=== PATIENT | female | born 1965 | race Caucasian/White ===

== ENCOUNTER 2018-11-17 15:50 | Emergency (ER) | payer BC ==
[~2018-11-17] VITALS: Ht 160 cm; Wt 59.9 kg
[2018-11-17 16:05] VITALS: Ht 160 cm; Wt 59.9 kg
[2018-11-17] MEDS ORDERED: ONDANSETRON 4 MG INJ IV STA (18:50)
[2018-11-17] MEDS ORDERED: LIDOCAINE/MYLANTA 40 ML BTL PO STA (18:50)
[2018-11-17] MEDS ORDERED: KETOROLAC 15 MG INJ IV STA (18:50)
[2018-11-17] MEDS ORDERED: SOD CHLORIDE 0.9% 1,000 ML IV STA (18:50)
[2018-11-17] MEDS ORDERED: LOPERAMIDE 2 MG CAP PO ONE (19:00)
[2018-11-17] MEDS ORDERED: ONDA4TAB8 PO (19:55)
[2018-11-17] MEDS ORDERED: LOPE2CAP PO (19:55)
[2018-11-17] MEDS ORDERED: IBUP-1542 PO (19:55)
--- NOTE | 2018-11-17 20:02 | ERD ---
ER Documentation Chief Complaint Chief Complaint AP since yesterday w/ c/o n/v/diarrhea HPI 53-year-old woman complaining of epigastric abdominal pain nausea and multiple episodes of diarrhea for the last 2 days. Her epigastric abdominal pain is been nonradiating and nonexertional. Home who recently diagnosed with viral syndrome. Patient has had no cough or chest pain, no shortness of breath, no sore throat, no body aches, no fevers or chills, and denies dysuria. Patient has had no recent travel or antibiotic use ROS All systems reviewed and are negative except as per history of present illness. Medications Home Meds Active Scripts Ibuprofen* (Motrin*) 600 Mg Tab, 600 MG PO Q8 PRN for PAIN AND/OR INFLAMMATION, #30 TAB Prov:ANGELINA BLANCO MD 11/17/18 Ondansetron Hcl* (Zofran*) 4 Mg Tablet, 4 MG PO Q8H PRN for NAUSEA AND/OR VOMITING, #30 TAB Prov:ANGELINA BLANCO MD 11/17/18 Loperamide Hcl* (Imodium*) 2 Mg Capsule, 2 MG PO .AFTER EA LOOSE BM PRN for DIARRHEA, #10 TAB Prov:ANGELINA BLANCO MD 11/17/18 PMhx/Soc Medical and Surgical Hx: pt denies Medical Hx, pt denies Surgical Hx Hx Alcohol Use: No Hx Substance Use: No Hx Tobacco Use: No Smoking Status: Never smoker FmHx Family History: No diabetes Physical Exam Vitals Vital Signs Date Temp Pulse Resp B/P (MAP) Pulse Ox O2 O2 Flow FiO2 Time Delivery Rate 11/17/18 98.6 77 20 130/60 97 16:05 (83) Physical Exam GENERAL: Well-developed, well-nourished, well-hydrated, in no apparent distress, looks nontoxic in appearance HEENT: Moist mucous membranes, pink conjunctiva, no cervical spine tenderness or step-off deformities, no goiter, no jaundice or icterus, extraocular movements intact without pain. No submandibular induration, and no pharyngeal erythema NEURO: Alert and oriented 3, cranial nerves II through XII intact bilaterally, pupils equal round reactive to light, no focal deficits or facial asymmetry, sensation intact distally Strength 5/5 in upper and lower extremities bilaterally CARDIAC: Regular rate and rhythm, no murmurs rubs or gallops LUNGS: Clear bilaterally no wheezing crackles or stridor ABDOMEN: Soft nontender, no guarding, no rigidity, no rebound, no psoas sign no obturator sign. Normoactive bowel sounds SKIN: Warm and dry to touch, no abrasions, contusions, or hematomas, no lacerations, no ecchymosis, no target lesions, and without ulcers EXTREMITIES: No clubbing cyanosis or edema, calves are bilaterally symmetrical, no Homans sign, no popliteal cord sign. Distal pulses equal and bilateral PSYCH: Normal affect without agitation or irritability Result Diagram: 11/17/18185811/[id number]/181858 Results 24 hrs Laboratory Tests Test 11/17/18 18:59 White Blood Count 8.8 10^3/ul Red Blood Count 4.33 10^6/ul Hemoglobin 13.4 g/dl Hematocrit 41.4 % Mean Corpuscular Volume 95.6 fl Mean Corpuscular Hemoglobin 30.9 pg Mean Corpuscular Hemoglobin Concent 32.4 g/dl Red Cell Distribution Width 13.1 % Platelet Count 464 10^3/UL Mean Platelet Volume 8.5 fl Immature Granulocytes % 0.100 % Neutrophils % 46.2 % Lymphocytes % 45.1 % Monocytes % 6.6 % Eosinophils % 1.4 % Basophils % 0.6 % Nucleated Red Blood Cells % 0.0 /100WBC Immature Granulocytes # 0.010 10^3/ul Neutrophils # 4.1 10^3/ul Lymphocytes # 4.0 10^3/ul Monocytes # 0.6 10^3/ul Eosinophils # 0.1 10^3/ul Basophils # 0.1 10^3/ul Nucleated Red Blood Cells # 0.0 10^3/ul Urine Color YELLOW Urine Clarity SLIGHTLY CLOUDY Urine pH 5.0 Urine Specific Matthews 1.016 Urine Ketones NEGATIVE mg/dL Urine Nitrite NEGATIVE mg/dL Urine Bilirubin NEGATIVE mg/dL Urine Urobilinogen NEGATIVE mg/dL Urine Leukocyte Esterase NEGATIVE Nancy/ul Urine Microscopic RBC 3 /HPF Urine Microscopic WBC 1 /HPF Urine Bacteria FEW /HPF Urine Hemoglobin 1+ mg/dL Urine Glucose NEGATIVE mg/dL Urine Total Protein NEGATIVE mg/dl Sodium Level 146 mmol/L Potassium Level 3.9 mmol/L Chloride Level 108 mmol/L Carbon Dioxide Level 26 mmol/L Anion Gap 12 Blood Urea Nitrogen 11 mg/dl Creatinine 0.61 mg/dl Est Glomerular Filtrat Rate mL/min > 60 mL/min Glucose Level 96 mg/dl Calcium Level 10.0 mg/dl Total Bilirubin 0.2 mg/dl Direct Bilirubin 0.00 mg/dl Indirect Bilirubin 0.2 mg/dl Aspartate Amino Transf (AST/SGOT) 24 IU/L Alanine Aminotransferase (ALT/SGPT) 14 IU/L Alkaline Phosphatase 86 IU/L Total Protein 8.1 g/dl Albumin 4.4 g/dl Globulin 3.70 g/dl Albumin/Globulin Ratio 1.18 Lipase 71 U/L Current Medications Medications Dose Sig/Stefania Start Time Status Last (Trade) Ordered Route PRN Stop Time Admin Dose Reason Admin Sodium 1,000 ml @ Q1H STAT 11/17/18 DC 11/17/18 Chloride 1,000 mls/hr IV 18:50 19:07 11/17/18 19:49 Ondansetron 4 mg ONCE STAT 11/17/18 DC 11/17/18 HCl (Zofran IV 18:50 19:07 Inj) 11/17/18 18:51 40 ml ONCE STAT 11/17/18 DC 11/17/18 Miscellaneous PO 18:50 19:07 Medication 11/17/18 18:51 (Gi Cocktail (2)) Ketorolac 15 mg ONCE STAT 11/17/18 DC 11/17/18 Tromethamine IV 18:50 19:07 (Toradol) 11/17/18 18:51 Loperamide 2 mg ONCE ONCE 11/17/18 DC 11/17/18 HCl PO 19:00 19:07 (Imodium Cap) 11/17/18 19:01 Procedures/[facility] IV line was established 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 Patient was afebrile I administered 1 L normal saline IV, GI cocktail p.o., Toradol 15 mg IV, loperamide 2 mg p.o., and Zofran 4 mg IV for nausea. CBC and electrolytes were normal, liver function tests were normal, urinalysis negative for infection I repeated the patient's abdominal examination after above therapy and prior to discharge, she has no McBurney's point tenderness, no psoas sign, no obturator sign, no Diez's sign. Patient has been able to tolerate p.o. and had no episodes of vomiting or diarrhea while in the emergency department. I told her to return in 8-12 hours for repeat abdominal examination and reevaluation. Differential diagnoses considered, included but not limited to acute coronary syndrome, pulmonary embolism, aortic dissection, abdominal aortic aneurysm, sepsis, stroke, meningitis, encephalitis, pneumonia, appendicitis, cholecystitis, bowel obstruction, pyelonephritis, nephrolithiasis, cystitis, as well as metabolic, hematologic, and electrolyte abnormalities. As well as abscess, cellulitis, fractures, and dislocations. Patient feels much better at this time, and vital signs are normal, symptoms have improved. I did give strict instructions to return to the ED if symptoms continue or worsen, patient will otherwise follow-up with primary care physician. Patient understood instructions and agreed to plan. Disclaimer: Inadvertent spelling and grammatical errors are likely due to EHR/dictation software use and do not reflect on the overall quality of patient care. Also, please note that the electronic time recorded on this note does not necessarily reflect the actual time of the patient encounter. Departure Diagnosis: Primary Impression: Abdominal pain Abdominal location: epigastric Qualified Codes: R10.13 - Epigastric pain Additional Impression: Vomiting and diarrhea Condition: Good Patient Instructions: Diarrhea, Viral (Child) (Adult) ANGELINA BLANCO MD Nov 17, 2018 20:02
[2018-11-17 20:40] VITALS: BP 107/76; PULSE 64; RESP 14
== END 2018-11-17 20:40 | disposition home or self-care (01) ==
LOC: E/R 15:50
DX: R10.13 Epigastric pain (principal); R11.2 Nausea with vomiting, unspecified; R19.7 Diarrhea, unspecified
CPT/HCPCS: 36415; 80053; 81001; 83690; 85025; 96361; 96374; 96375; 99284; J1885; J2405; J7030